=== PATIENT | female | born 1950 | race Two or more races ===

== ENCOUNTER 2017-03-22 22:31 | Emergency (ER) | payer MEDICARE, OTHER ==
[2017-03-22 22:39] VITALS: BP 162/77
--- NOTE | 2017-03-23 00:04 | EDM.PDOC ---
ED HPI GENERAL MEDICAL PROBLEM - General Chief Complaint: General Stated Complaint: FELL 03/20 AND HAS JAW PAIN Time Seen by Provider: 03/22/17 22:40 Source of Information: Reports: Patient History Limitations: Reports: No Limitations - History of Present Illness INITIAL COMMENTS - FREE TEXT/NARRATIVE: ED ambulatory via private vehicle. C/O pain to jaw, neck and back with headache. Notes falling in bedroom on Monday after standing up to fast. Fell back against board striking right lower jaw head and neck, mid and loswer back also hurting . has not taken anything for pain. Location: Reports: Head, Face, Neck, Back Quality: Reports: Ache Right Face Pain Score (Numeric/FACES): 7 - Related Data Allergies Allergy/AdvReac Type Severity Reaction Status Date / Time methantheline Allergy Hives Verified 03/22/17 22:41 Home Meds: Home Meds Albuterol Sulfate [Proair Hfa] 2 puff INH .Q6H 04/06/16 [History] Amitriptyline HCl 25 mg PO BEDTIME 04/06/16 [History] Ascorbic Acid 1,000 mg PO DAILY 04/06/16 [History] Aspirin [Low Dose Aspirin EC] 1 tab PO DAILY 04/06/16 [History] Calcium Carbonate 1 tab PO DAILY 04/06/16 [History] Cinnamon Bark [Cinnamon] 2 cap PO DAILY 04/06/16 [History] Cyanocobalamin (Vitamin B-12) [Vitamin B-12] 1 tab PO DAILY 04/06/16 [History] Fluticasone/Salmeterol [Advair 500-50 Diskus] 2 puff INH .Q12H 04/06/16 [History ] Furosemide [Lasix] 1 tab PO DAILY 04/06/16 [History] Hydrochlorothiazide 1 tab PO DAILY 04/06/16 [History] Insulin Glargine,Hum.Rec.Anlog [Lantus Solostar] 36 units INJECT BEDTIME [History] Insulin Lispro [Humalog] 5 units INJECT TIDMEALS 04/06/16 [History] Krill/Om-3/DHA/EPA/Phospho/Ast [Krill Oil 1,000 mg Softgel] 1 cap PO DAILY 04/06 [History] Lisinopril [Prinivil] 1 tab PO DAILY 04/06/16 [History] Omeprazole [Omeprazole] 1 tab PO DAILY 04/06/16 [History] PARoxetine HCl [Paroxetine HCl] 1 tab PO DAILY 04/06/16 [History] Tiotropium [Spiriva Handihaler] 1 puff INH DAILY 04/06/16 [History] amLODIPine Besylate [Amlodipine Besylate] 1 tab PO DAILY 04/06/16 [History] atorvaSTATin [Lipitor] 80 mg PO BEDTIME 04/06/16 [History] metFORMIN [Glucophage] 1,000 mg PO BID 04/06/16 [History] oxyCODONE HCl/Acetaminophen [Percocet 5-325 mg Tablet] 5 mg PO BID PRN 04/06/16 [History] Carvedilol 6.25 mg PO BID 03/22/17 [History] Potassium 99 mg PO DAILY 03/22/17 [History] diphenhydrAMINE [Benadryl] 25 mg PO DAILY PRN 03/22/17 [History] Past Medical History HEENT History: Reports: Impaired Vision Cardiovascular History: Reports: CAD, Heart Murmur, High Cholesterol, Hypertension Respiratory History: Reports: COPD Gastrointestinal History: Reports: GERD [employer] History: Reports: Musculoskeletal History: Reports: Arthritis, Back Pain, Chronic, Osteoarthritis Neurological History: Reports: Migraines, Vertigo Psychiatric History: Reports: Depression Endocrine/Metabolic History: Reports: Diabetes, Type II Hematologic History: Reports: None Immunologic History: Reports: None Oncologic (Cancer) History: Reports: None Dermatologic History: Reports: None - Infectious Disease History Infectious Disease History: Reports: Chicken Pox, Measles, Mumps - Past Surgical History HEENT Surgical History: Reports: Cataract Surgery Cardiovascular Surgical History: Reports: Carotid Endarterectomy, Coronary Artery Stent Respiratory Surgical History: Reports: None GI Surgical History: Reports: Appendectomy, Cholecystectomy Female Surgical History: Reports: Hysterectomy Musculoskeletal Surgical History: Reports: Shoulder Surgery Social & Family History - Tobacco Use Smoking Status *Q: Current Every Day Smoker Years of Tobacco use: 30 Packs/Tins Daily: 0.5 Used Tobacco, but Quit: No Second Hand Smoke Exposure: Yes - Caffeine Use Caffeine Use: Reports: Coffee - Recreational Drug Use Recreational Drug Use: No - Living Situation & Occupation Living situation: Reports: with Family Occupation: Retired ED ROS GENERAL - Review of Systems Review Of Systems: See Below Constitutional: Reports: No Symptoms HEENT: Reports: No Symptoms Respiratory: Reports: No Symptoms Cardiovascular: Reports: No Symptoms GI/Abdominal: Reports: No Symptoms Musculoskeletal: Reports: Neck Pain, Back Pain, Other (jaw) Skin: Reports: Bruising (slight left lower forehead) Neurological: Reports: Headache (generalized). Denies: Difficulty Walking, Weakness Psychiatric: Reports: No Symptoms ED EXAM, GENERAL - Physical Exam Exam: See Below Exam Limited By: No Limitations General Appearance: Alert, Mild Distress Eye Exam: Bilateral Eye: EOMI, PERRL (4mm) Ears: Normal External Exam Nose: Normal Inspection Throat/Mouth: Normal Teeth, Other (limited ability to open fully related to pain , teeth intackt. ) Neck: Tender Lateral (right upper), Tender Midline Respiratory/Chest: No Respiratory Distress, Lungs Clear, Normal Breath Sounds Cardiovascular: Normal Peripheral Pulses, Regular Rate, Rhythm GI/Abdominal: Normal Bowel Sounds, Soft Back Exam: Full Range of Motion, Vertebral Tenderness (mid thoracic to low lumbar) Extremities: Normal Inspection, Normal Range of Motion Neurological: Alert, Oriented, CN II-XII Intact, Normal Cognition, Normal Gait, Normal Reflexes, No Motor/Sensory Deficits Psychiatric: Normal Affect, Normal Mood Skin Exam: Warm, Dry, Intact, Normal Color Course - Vital Signs Last Recorded V/S: Last Vital Signs Temp 97.2 F 03/22/17 22:38 Pulse 78 03/22/17 22:38 Resp 16 03/22/17 22:38 BP 162/77 H 03/22/17 22:38 Pulse Ox 96 03/22/17 22:38 - Radiology Interpretation Free Text/Narrative:: CT head, face neck and back negative for acute fractures. Remote T1 compression fracture Departure - Departure Time of Disposition: 23:59 Disposition: Home, Self-Care 01 Condition: Fair Clinical Impression: Jaw pain, non-TMJ Back pain Qualifiers: Back pain location: back pain in unspecified location Chronicity: acute Back pain laterality: midline Qualified Code(s): M54.9 - Dorsalgia, unspecified Fall at home Qualifiers: Encounter type: initial encounter Qualified Code(s): W19.XXXA - Unspecified fall, initial encounter - Discharge Information Instructions: Jaw Contusion, Back Pain, Adult, [id number] Referrals: PCP,None [Primary Care Provider] - Forms: ED Department Discharge Additional Instructions: rest tylenol or ibuprofen per label for discomfort soft diet follow up if not improving in one week
== END 2017-03-23 00:09 | disposition home or self-care (01) ==
LOC: EEVIPCON 22:31 → DL.ED 22:31
DX: R68.84 Jaw pain (principal); M54.6 Pain in thoracic spine; M54.5 Low back pain; F17.210 Nicotine dependence, cigarettes, uncomplicated; I10 Essential (primary) hypertension; I25.10 Atherosclerotic heart disease of native coronary artery without angina pectoris; E78.00 Pure hypercholesterolemia, unspecified; J44.9 Chronic obstructive pulmonary disease, unspecified; K21.9 Gastro-esophageal reflux disease without esophagitis; G43.909 Migraine, unspecified, not intractable, without status migrainosus; F32.9 Major depressive disorder, single episode, unspecified; E11.9 Type 2 diabetes mellitus without complications; Z98.49 Cataract extraction status, unspecified eye; Z95.5 Presence of coronary angioplasty implant and graft; Z90.49 Acquired absence of other specified parts of digestive tract; Z90.710 Acquired absence of both cervix and uterus; Z98.890 Other specified postprocedural states; Z79.4 Long term (current) use of insulin; Z79.899 Other long term (current) drug therapy; Z88.8 Allergy status to other drugs, medicaments and biological substances; W01.198A Fall on same level from slipping, tripping and stumbling with subsequent striking against other object, initial encounter; Y92.89 Other specified places as the place of occurrence of the external cause
CPT/HCPCS: 70450; 70486; 72125; 72128; 72131; 99282; 99283